=== PATIENT | male | born 1945 | race Caucasian/White ===

== ENCOUNTER → 2018-02-24 | Day surgery (SDC) | payer MEDICARE ==
[2018-02-22 11:25] LABS: BASOPHILS % 0.6 % (0.0-1.0); EOSINOPHILS # (AUTO) 0.1 (0.0-0.4); EOSINOPHILS % 1.8 % (0.0-6.0); HEMATOCRIT 45.1 % (38.2-49.6); HEMOGLOBIN 15.8 g/dL (14.0-18.0); LYMPHOCYTES % 14.3 % (18.0-39.1); MEAN CORPUSCULAR HEMOGLOBIN 31.8 pg (28-32); MEAN CORPUSCULAR VOLUME 90.7 fL (81-99); MONOCYTES # (AUTO) 0.6 (0.2-0.8); MONOCYTES % 9.2 % (4.4-11.3); NEUTROPHILS % 73.8 % (38.7-80.0); PLATELET COUNT 143 x10e3/uL (140-360); RED BLOOD COUNT 4.97 x10e6/uL (4.3-5.7); RED CELL DISTRIBUTION WIDTH 13.4 % (11.7-14.4)
[2018-02-22 11:46] LABS: ANION GAP 13.4 mmol/L (8-16); BLOOD UREA NITROGEN 14 mg/dL (7-26); BUN/CREATININE RATIO 13 (6-25); CALCIUM 9.8 mg/dL (8.4-10.2); CARBON DIOXIDE 27 mmol/L (22-29); CHLORIDE 108 mmol/L (98-107); CREATININE, SERUM 1.11 mg/dL (0.72-1.25); EST GLOMERULAR FILTRATION RATE > 60 ML/MIN (60-); GLUCOSE 96 mg/dL (74-118); POTASSIUM 5.4 mmol/L (3.5-5.1); SODIUM 143 mmol/L (136-145)
[~2018-02-24] MED LIST: ALFUZOSIN HCL10 MG PO; ALIGN4 MG PO; ASPIR 8181 MG PO; BELLADONNA/OPIUM 60 MG SUPP PR ONE; BIOTIN PO; CO Q-10 PO; DEXAMETHASONE SOD PHOS INJ 4 MG/ML VIAL ONE; FENTANYL CITRATE/PF 100MCG/2 ML INJ ONE; FINASTERIDE5 MG PO; FOLIC ACID PO; GLUCOSAMINE PO; IOPAMIDOL 610MG/1ML 300 MG/ML VIAL IV ONE; LEVOFLOXACIN 500MG/D5W 100ML 100 ML IV ONE; LIDOCAINE HCL 2% LOCAL INJ 5 ML SDV VIAL INJ ONE; MIDAZOLAM HCL 2 MG/2 ML VIAL ONE; MULTIVITAMINS1 EAC7 PO; ONDANSETRON HCL INJ 2 MG/ML VIAL ONE; PROPOFOL IV EMULSION 10 MG/ML 20 ML VIAL ONE; SEVOFLURANE INHAL SOLN 250 ML PEN BTL ONE; VITAMIN B-12 PO
--- NOTE | 2018-02-24 07:46 | Diagnostic Imaging Report ---
PROCEDURE:CHEST 2 VIEWS TECHNIQUE:PA and lateral chest INDICATION:Preoperative evaluation for kidney stone surgery COMPARISON:None. FINDINGS: The lungs are clear and symmetrically inflated. No pleural effusions. Normal heart size, mediastinal contour, and pulmonary vasculature. Intact skeleton. CONCLUSION: No acute abnormality. Dictated by: Cuauhtemoc Collado M.D. on 02/24/2018 at 7:47 Electronically approved by: Cuauhtemoc Collado M.D. on 02/24/2018 at 7:47
--- NOTE | 2018-02-24 07:49 | Diagnostic Imaging Report ---
PROCEDURE:ABDOMEN-1VIEW (KUB) TECHNIQUE:Supine AP abdomen totaling 2 radiographs INDICATION:Preoperative evaluation for kidney stone surgery. COMPARISON:None. FINDINGS: There is a large volume of stool overlying the renal shadows. Within that limitation there are two questionable 0.5 cm stones at the left inferior pole. 0.6 x 0.9 cm calcification in the right hemipelvis, within the expected region of the ureterovesicular junction. Multiple adjacent subcentimeter vascular calcifications. CONCLUSION: 1. 2 questionable left inferior pole stones measuring 0.5 cm. 2. 0.6 x 0.9 cm right hemipelvis calcification which may be vascular, or associated with the distal right ureter. 3. Study is limited by a large amount of stool. Dictated by: Cuauhtemoc Collado M.D. on 02/24/2018 at 7:51 Electronically approved by: Cuauhtemoc Collado M.D. on 02/24/2018 at 7:51
--- NOTE | 2018-04-01 22:43 | Operative Report ---
DATE OF PROCEDURE: February 24, 2018 PREOPERATIVE DIAGNOSES 1. Left nephrolithiasis. 2. Cystolithiasis. 3. Microhematuria. POSTOPERATIVE DIAGNOSES 1. Left nephrolithiasis. 2. Cystolithiasis. 3. Microhematuria. OPERATIONS Performed. Note these were all staged procedures as part of multistage, multistep process of managing the patient's urolithiasis. 1. Left-sided extracorporeal shockwave lithotripsy (separate procedure performed for the nephrolithiasis, done from a separate approach). 2. Cystolitholapaxy (separate procedure performed for the cystolithiasis). 3. Cystourethroscopy with bilateral ureteral catheterization and retrograde ureteropyelography (separate procedure performed for the microhematuria). 4. Interpretation of retrograde ureteropyelography. 5. Supervision of fluoroscopy. No radiologist present. ANESTHESIA: General. COMPLICATION: None. CLINICAL SUMMARY: Richard Calabrese is a 72-year-old man with the above preoperative diagnoses. He was brought for the above procedures. He is aware of the risks of bleeding, infection, injury to adjacent structures, need for additional procedures, and elected to proceed. OPERATIVE PROCEDURE IN DETAIL: Informed consent was verified. Richard Calabrese was properly identified, taken to operating room placed on the lithotripsy table in supine position. Anesthesia was uneventfully begun. The patient's 4-mm nephrolithiasis was localized with biplanar fluoroscopy. Total of 3000 shocks were delivered. The patient was then carefully and gently re-positioned in the dorsal lithotomy position with all pressure points well padded. His genitalia were prepared and draped in usual sterile fashion. The 22[employer] cystoscope sheath with the visual obturator in place was atraumatically inserted into the patient's urethra. It was guided down the unremarkable distal urethra past a normal sphincteric region through the prostate bed was significant for bilobar BPH with kissing lateral lobes. We entered the patient's bladder, where we identified a bladder stone. We proceeded on breaking up and crushing the stone with forceps. Once we crushed the stone into multiple smaller fragments, we evacuated the stone with cystoscopic verification. Ureteral catheter was used cannulate each ureter and retrograde ureteropyelography was performed. Interpretation of retrograde ureteropyelography: Contrast was instilled in retrograde fashion bilaterally. The right side was unremarkable. There were no tumors, no stones, and no diverticula. Unobstructed drainage was observed fluoroscopically. The left midpole caroline contained the stone showed there were filling defects in that area. The remainder of the kidney was unremarkable. There were no hydronephrosis and unobstructed drainage was observed fluoroscopically. The patient's bladder was drained. The cystoscope was withdrawn. The patient was uneventfully reversed from anesthesia and taken to recovery room in stable condition. There were no complications to the procedure well. He tolerated the procedure well. Explicit postoperative instructions were given and will follow the patient up in the office. Job#: [id number] CQ
== END | disposition home or self-care (01) ==
LOC: OR 06:57
PROVIDERS: ATTEND Urology
DX: N20.0 Calculus of kidney (principal); N21.0 Calculus in bladder; N40.0 Benign prostatic hyperplasia without lower urinary tract symptoms; M19.90 Unspecified osteoarthritis, unspecified site; Z88.0 Allergy status to penicillin; Z01.812 Encounter for preprocedural laboratory examination; Z79.82 Long term (current) use of aspirin; Z87.891 Personal history of nicotine dependence
CPT/HCPCS: 36415 ×2; 50590; 52317; 71046; 74018; 80048; 83970; 84132; 84550; 85025; 88300; J1100; J1956; J2001; J2250; J2405; Q9967

== ENCOUNTER → 2018-04-03 | Outpatient (CLI) | payer MEDICARE ==
[~2018-04-03] MED LIST changes: -BELLADONNA/OPIUM 60 MG SUPP PR ONE; -DEXAMETHASONE SOD PHOS INJ 4 MG/ML VIAL ONE; -FENTANYL CITRATE/PF 100MCG/2 ML INJ ONE; -IOPAMIDOL 610MG/1ML 300 MG/ML VIAL IV ONE; -LEVOFLOXACIN 500MG/D5W 100ML 100 ML IV ONE; -LIDOCAINE HCL 2% LOCAL INJ 5 ML SDV VIAL INJ ONE; -MIDAZOLAM HCL 2 MG/2 ML VIAL ONE; -ONDANSETRON HCL INJ 2 MG/ML VIAL ONE; -PROPOFOL IV EMULSION 10 MG/ML 20 ML VIAL ONE; -SEVOFLURANE INHAL SOLN 250 ML PEN BTL ONE
--- NOTE | 2018-04-03 12:25 | Diagnostic Imaging Report ---
PROCEDURE:X-RAY ABDOMEN - KUB COMPARISON:None. INDICATIONS:CALCULUS OF KIDNEY FINDINGS: Questionable left lower pole renal calculi described on the comparison examination are not identified on the current study. As before, gas and fecal material obscures the renal shadows. 6 x 9 mm calcification in the right hemipelvic cyst is also no longer identified. Multiple round phleboliths persist. Bowel gas pattern is nonobstructive. Regional skeletal structures are intact with degenerative disc changes and facet arthropathy of the lumbar spine. CONCLUSION: No plain film evidence of urolithiasis on the current study. Previously described questionable left lower pole renal calculi are no longer identified. Dictated by: Jaime Kendrick M.D. on 04/03/2018 at 12:28 Electronically approved by: Jaime Kendrick M.D. on 04/03/2018 at 12:28
== END ==
LOC: RAD 11:46
PROVIDERS: ATTEND Urology
DX: N20.0 Calculus of kidney (principal)
CPT/HCPCS: 74018